=== PATIENT | female | born 1985 | race Two or more races ===

== ENCOUNTER 2018-10-19 11:58 | Emergency (ER) | payer OTHER ==
[~2018-10-19] VITALS: Ht 162.6 cm; Wt 77.6 kg
[2018-10-19 12:05] VITALS: BP 150/97
[2018-10-19] MEDS ORDERED: LORAZEPAM 1 MG TABLET ONE (12:49)
[2018-10-19] MEDS: LORAZEPAM 1 MG TABLET PO ONE (12:51)
== END 2018-10-19 13:25 | disposition home or self-care (01) ==
LOC: ER 11:58
DX: F41.0 Panic disorder [episodic paroxysmal anxiety] (principal); Z60.2 Problems related to living alone